=== PATIENT | female | born 1960 | race Caucasian/White ===

== ENCOUNTER 2023-03-25 13:07 | Outpatient (OUT) | payer MEDICARE, SELFPAY ==
--- NOTE | 2023-03-25 13:16 | P.GSHP_ITS ---
History of Present Illness History of Present Illness Chief complaint: right ureteral stone Narrative: Patient presents for preadmission testing. Please see HPI from Dr. Beltran dated 03/14/2023. Review of Systems ROS Narrative Please see ROS from Dr. Beltran dated 03/14/2023. [facility] History (Updated 03/25/23 @ 13:05 by Nichelle Triplett NP) Arthritis ?M19.90 - Unspecified osteoarthritis, unspecified site (ICD-10) Breast cancer ?C50.919 - Malignant neoplasm of unspecified site of unspecified female breast (ICD-10) COVID-19 ?U07.1 - COVID-19 (ICD-10) High cholesterol ?E78.00 - Pure hypercholesterolemia, unspecified (ICD-10) Insomnia ?G47.00 - Insomnia, unspecified (ICD-10) Kidney stones ?N20.0 - Calculus of kidney (ICD-10) Lymphedema ?I89.0 - Lymphedema, not elsewhere classified (ICD-10) S/P extracorporeal shock wave therapy ?Z98.890 - Other specified postprocedural states (ICD-10) Surgical History (Updated 03/25/23 @ 13:05 by Nichelle Triplett NP) H/O mastectomy ?Z90.10 - Acquired absence of unspecified breast and nipple (ICD-10) History of cataract extraction ?Z98.49 - Cataract extraction status, unspecified eye (ICD-10) History of colonoscopy ?Z98.890 - Other specified postprocedural states (ICD-10) History of esophagogastroduodenoscopy (EGD) ?Z98.890 - Other specified postprocedural states (ICD-10) S/P cystoscopy ?Z98.890 - Other specified postprocedural states (ICD-10) Family History (Updated 03/25/23 @ 13:05 by Nichelle Triplett NP) Other Family history of gastric cancer Family history of heart disease Family history of lung cancer Family history of myocardial infarction Social History (Updated 03/25/23 @ 13:01 by Nichelle Triplett NP) Within the past year, how often did you have a drink containing alcohol: monthly or less Smoking status: Never smoker Non-prescribed substance use: denies use Highest level of school completed/degree received: some college, no degree Meds Home Medications and Allergies Home Medications Medication Instructions Recorded Confirmed Type ascorbic acid (vitamin C) 1,000 mg 1 g PO DAILY 03/25/23 03/25/23 History capsule atorvastatin 20 mg tablet 20 mg PO QPM 03/25/23 03/25/23 History cholecalciferol (vitamin D3) 25 1,000 unit PO DAILY 03/25/23 03/25/23 History mcg (1,000 unit) capsule magnesium 200 mg tablet 400 mg PO DAILY 03/25/23 03/25/23 History methyl b 12 03/25/23 History temazepam 15 mg capsule (Restoril) 15 mg PO QPM PRN sleep 03/25/23 03/25/23 History topiramate 50 mg tablet (Topamax) 50 mg PO DAILY 03/25/23 03/25/23 History zinc 50 mg capsule 50 mg PO DAILY 03/25/23 03/25/23 History Allergies Allergy/AdvReac Type Severity Reaction Status Date / Time Penicillins Allergy Hives Verified 03/25/23 12:58 Exam Narrative Exam Narrative: Constitutional: Awake, alert, comfortable, well-appearing, nontoxic, interactive, vital signs as charted Head: Normocephalic, atraumatic Neck: Supple, normal appearance, normal range of motion, no meningeal signs, no lymphadenopathy Respiratory: No respiratory distress, breath sounds clear Cardiovascular: Regular rate and rhythm, strong and regular heart tones Abdomen: Nontender, normal bowel sounds, soft, no CVA tenderness Musculoskeletal: Normal gait, no swelling or edema Skin: No rashes or induration, no lesions, only visible skin inspected Neuro: No neurological deficits, normal sensation Psychiatric: Oriented ?3, normal affect Assessment and Plan Assessment and Plan (1) Kidney stones: Plan Cystoscopy, right retrograde, ureteroscopy, laser, basket, right stent exchange scheduled with Dr. Beltran 04/03/2023.
== END 2023-03-25 13:08 | disposition home or self-care (01) ==
LOC: PST 13:07
PROVIDERS: PCP Family Medicine; Visit Provider Urology
DX: Z01.818 Encounter for other preprocedural examination (principal); N20.0 Calculus of kidney
CPT/HCPCS: G0463

== ENCOUNTER 2023-04-03 11:04 | Day surgery (SDC) | payer MEDICARE, SELFPAY ==
[2023-03-25 13:14] VITALS: BP 150/75; PULSE 65; RESP 18; TEMP 36.4; O2SAT 98; BMI 35.7
[2023-04-03] VITALS (9 sets, daily range): BP systolic 118–167; BP diastolic 62–86; PULSE 58–69; RESP 14–18; TEMP 35.9–36.1; O2SAT 94–100
--- NOTE | 2023-04-03 11:00 | XR_ITS ---
The [address] [address] Patient Name: RASHAD HADLEY MRN: [id number] date: 1960 Sex: F Assigned Patient Location: [facility] Current Patient Location: [facility] Accession/Order Number: [id number] Exam Date: 04/03/2023 11:14 Report Date: 04/03/2023 11:38 At the request of: SUSHILA ORTIZ Procedure: XR abdomen 1V EXAM: XR abdomen 1V HISTORY: kidney stones COMPARISON: None. TECHNIQUE: AP view of the abdomen. FINDINGS: Nonobstructive bowel gas pattern is noted. There are right renal calculi, largest measuring up to 8 mm. Indwelling right double-J ureteral stent is noted. The osseous structures are intact. XR/XR abdomen 1V IMPRESSION: Nonobstructive bowel gas pattern. Right nephrolithiasis without double-J ureteral stent. Electronically authenticated by: SOFYA GONZALEZ Date: 04/03/2023 11:38
[2023-04-03] MEDS: LACTATED RINGER'S SOLUTION 1,000 ML 50 ML IV ×2 (11:48→14:40)
[2023-04-03] MEDS: CEFAZOLIN SODIUM/DEXTROSE,ISO 2 GM/50 ML PIGGYBACK IV (12:21)
[2023-04-03] MEDS: IOHEXOL 300 MG/ML - 50 ML BTL INJ (13:27)
--- NOTE | 2023-04-03 13:46 | P.URON_ITS ---
Urology Surgery Operative Note Operative Note Procedure Date: 04/03/23 Time Out Performed: yes Pre-op Diagnosis: Right kidney stones Post-op Diagnosis: same as pre-op Procedures performed: Cystoscopy, right retrograde pyelogram, ureteroscopy, laser lithotripsy, stent exchange Anesthesia: GETA (LMA, Jeana Barcenas CRNA) Primary Surgeon: Diamond Beltran Complications: none Estimated blood loss (mL): 0 Findings: Mildly encrusted right indwelling stent bladder curl. Radiopaque RLP stone. On URS, pile of fragments within lower pole calyces (severe angulation) and mid pole. Unable to basket extract. Underwent uncomplicated laser lithotripsy for dusting/residual fragments < 1 mm. R RPG without filling defects or extravasation, no hydronephrosis or stones post treatment Specimens: none Drains: 4.8Fr x 22-30 cm JJ right ureteral stent on string Incision: none Indications for Procedures: 63 year old female with history of stones who was diagnosed with large right stone burden in multiple calyces s/p right ureteroscopy with laser lithotripsy, stent placement 02/26/23, here for second stage treatment for residual stones. Risks were discussed including but not limited to bleeding, pain, infection, damage to surrounding structures, inability to treat the stone/place a stent, and need for additional procedures. The patient understands the stent is not permanent and needs to be removed or exchanged within 3 months to prevent encrustation, infection, invasive procedures and/or permanent renal damage. Detailed description of Procedure: After informed consent was obtained, the patient was brought to the operating room and transferred onto the operating table in supine position. Sequential compression devices were placed on bilateral lower extremities. The patient received the appropriate dose of preoperative IV antibiotics and general anesthesia LMA was induced. They were positioned in modified dorsolithotomy with the appropriate pressure points padded, prepped, and draped in the usual sterile fashion for this procedure. An operative safety timeout was performed confirming the patient's identity, laterality and procedure, and all present agreed to proceed. I began by inserting a 22 [place] rigid cystoscope with 30 degree lens into the patient's urethra and bladder without difficulty. There were no bladder tumors, lesions, stones. Bilateral ureteral orifices were orthotopic and patent. I turned my attention to the right ureteral orifice and brought the indwelling right ureteral stent to the meatus with graspers without difficulty. A Sensor wire was inserted into the stent up to the renal pelvis confirmed on fluoroscopy, stent removed without difficulty. An 11/13 [place] by 36 cm ureteral access sheath was inserted over the wire in a sequential fashion to gain access to the renal pelvis. Only reached proximal ureter due to proximal ureteral narrowing and angulation. Next a flexible ureteroscope was inserted through the sheath and advanced to the renal pelvis under fluoroscopic guidance. Residual fragments from prior surgery were noted, unable to basket extract due to angle. A 275 ?m Thulium/YAG laser fiber was used to dust the stone into tiny fragments. After the stones were adequately treated, a full renoscopy was performed confirming no significant residual stones or fragments remained. Contrast was injected to assist with mapping for the renoscopy. The wire was reinserted and a pull down ureteroscopy was performed confirming no stones remained in the ureter. A 4.8Fr x 22-30cm JJ variable length ureteral stent on a string was advanced over the wire, noting adequate curl in the renal pelvis and bladder on fluoroscopic and direct visualization. The bladder was drained with cystoscope and inspected one final time to ensure adequate position of stent and no undue trauma to the bladder was done. The cystoscope was removed and stent secured to left thigh with Tegaderm dressing. The patient tolerated the procedure well without complication. The patient was awakened from anesthesia and sent to PACU in stable condition. Plan: Discharge home. Remove stent by the string at home in 4-5 days. Follow up in 6 wks with renal US and KUB. Other Provider present: No Post Operative care instructions: See discharge instructions Attending Doc Confirm Attending Attestation: Yes
== END 2023-04-03 14:53 | disposition home or self-care (01) ==
PROVIDERS: PCP Family Medicine; Visit Provider Urology
PROC: (CPT 52356; principal; 2023-04-03 12:00)
DX: N20.0 Calculus of kidney (principal); Z87.442 Personal history of urinary calculi; E78.00 Pure hypercholesterolemia, unspecified; Z86.16 Personal history of COVID-19; G47.00 Insomnia, unspecified; I89.0 Lymphedema, not elsewhere classified; Z90.10 Acquired absence of unspecified breast and nipple; Z85.3 Personal history of malignant neoplasm of breast; Z86.010 Personal history of colon polyps; R35.1 Nocturia; R31.21 Asymptomatic microscopic hematuria; Z90.13 Acquired absence of bilateral breasts and nipples; M19.90 Unspecified osteoarthritis, unspecified site
CPT/HCPCS: 52356; 74018; 74420; C1874; J2704; Q9967